=== PATIENT | female | born 2000 | race Caucasian/White ===

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

== ENCOUNTER 2018-01-02 12:02 | Emergency (ER) | payer MEDICAID ==
[2018-01-02 12:03] VITALS: BMI 26.2
[2018-01-02 12:36] VITALS: BP 117/73; PULSE 73; RESP 18; TEMP 98.6; O2SAT 99
[2018-01-02] MEDS: Sodium Chloride 0.9% 1,000 ML IV STA (13:41)
--- NOTE | 2018-01-02 14:08 | ED PDOC ---
HPI: Abdomen Time Seen by Provider: 01/02/18 12:46 Chief Complaint (Nursing): Abdominal Pain Chief Complaint (Provider): Abdominal Pain History Per: Patient History/Exam Limitations: no limitations Onset/Duration Of Symptoms: Days (3) Location Of Pain/Discomfort: RLQ, LLQ Associated Symptoms: Nausea, Vomiting, Diarrhea Additional Complaint(s): 17 years old female presents to the ED for evaluation of crampy lower abdominal pain associated with nausea and vomiting onset 3 days. Patient is currently menstruating and describes pain as menstrual-like pain. She reports experiencing multiple episodes of diarrhea last night. Patient reports traveling to [facility] and returned on 12/23. She denies any abdominal surgeries, recent antibiotics use, sick contact, fever and urinary symptoms. Otherwise: (- ) melena, (-) hematochezia. PMD: [place] Past Medical History Reviewed: Historical Data, Nursing Documentation, Vital Signs Vital Signs: Last Vital Signs Temp 98.6 F 01/02/18 12:32 Pulse 73 01/02/18 12:32 Resp 18 01/02/18 12:32 BP 117/73 01/02/18 12:32 Pulse Ox 99 01/02/18 14:12 - Medical History PMH: Anxiety, Bipolar Disorder Denies: Diabetes, Hepatitis, HIV, HTN, Seizures, Sexually Transmitted Disease - Surgical History Surgical History: No Surg Hx - Family History Family History: States: Unknown Family Hx - Social History Current smoker - smoking cessation education provided: No Alcohol: None Drugs: Denies - Home Medications Home Medications: Ambulatory Orders Medication Instructions Recorded ARIPiprazole [Abilify] 15 mg PO DAILY 07/05/16 Amoxicillin/Clavulanate [Augmentin 1 tab PO BID #14 tab 08/19/16 875 MG-125 MG] Ibuprofen [Motrin] 600 mg PO Q6 #20 tab 08/19/16 Methylprednisolone [Medrol Dose 4 mg PO DAILY #21 mg 08/19/16 Pack (21 tabs)] Cyclobenzaprine [Cyclobenzaprine 10 mg PO Q8 PRN #10 tab 12/25/17 HCl] Naproxen [Naprosyn] 500 mg PO BID PRN #14 tab 12/25/17 Dicyclomine [Bentyl] 20 mg PO QID PRN #20 tab 01/02/18 Ondansetron ODT [Zofran ODT] 4 mg PO DAILY PRN #20 odt 01/02/18 - Allergies Allergies/Adverse Reactions: Allergies Allergy/AdvReac Type Severity Reaction Status Date / Time No Known Allergies Allergy Verified 12/25/17 12:00 Review of Systems ROS Statement: Except As Marked, All Systems Reviewed And Found Negative Constitutional: Negative for: Fever Gastrointestinal: Positive for: Nausea, Vomiting, Abdominal Pain (Lower), Diarrhea Physical Exam - Physical Exam Comments: GENERAL APPEARANCE: Patient is awake, alert, oriented x 3, in mild painful distress. SKIN: Warm, dry; (-) cyanosis. EYES: (-) conjunctival pallor, (-) scleral icterus. ENMT: Mucous membranes moist. NECK: (-) tenderness, (-) stiffness, (-) lymphadenopathy. CHEST AND RESPIRATORY: (-) rales, (-) rhonchi, (-) wheezes; breath sounds equal bilaterally. HEART AND CARDIOVASCULAR: (-) irregularity; (-) murmur, (-) gallop. ABDOMEN AND GI: (-) distention. Bowel sounds active; (-) tenderness. (-) guarding, (-) rebound, (-) palpable masses, (-) CVA tenderness. EXTREMITIES: (-) deformity, (-) edema, (+) distal pulses. NEURO AND PSYCH: Mental status as above; (-) focal findings. - Laboratory Results Result Diagrams: 01/02/18 14:00 01/02/18 14:00 - ECG O2 Sat by Pulse Oximetry: 99 (RA) Pulse Ox Interpretation: Normal Medical Decision Making Medical Decision Making: Time: 1313 Initial Impression: Initial Plan: --CMP --Lipase --Urine dipstick --CBC --Toradol 30 mg IVP --NaCl 1,000ml IV --Zofran 4 mg IVP Labs reviewed : within normal limits, urine hCG negative you dipped positive for blood otherwise negative for infection. On reevaluation, patient is laying in bed comfortably in no acute distress. Patient reports improvement of symptoms, denies any nausea, abdominal pain or any episodes of diarrhea while in the ER. Repeat exam, abdomen soft with no tenderness, no guarding, no rebound. Lab results discussed the patient in great detail. Advised to follow up with primary care physician in 1-2 days without fail. Advised to take medication as prescribed. Return to the emergency room at any time for any new or worsening symptoms. Patient states she fully agrees with and understands discharge instructions. States that she agrees with the plan and disposition. Verbalized and repeated discharge instructions and plan. I have given the patient opportunity to ask any additional questions. ----- Scribe Attestation: Documented by Tammy Palomares, acting as a scribe for Le Apodaca PA-C. Provider Scribe Attestation: All medical record entries made by the Scribe were at my direction and personally dictated by me. I have reviewed the chart and agree that the record accurately reflects my personal performance of the history, physical exam, medical decision making, and the department course for this patient. I have also personally directed, reviewed, and agree with the discharge instructions and disposition. Disposition - Clinical Impression Clinical Impression: Gastroenteritis - Patient ED Disposition Is Patient to be Admitted: No Counseled Patient/Family Regarding: Studies Performed, Diagnosis, Need For Followup, Rx Given - Disposition Disposition: Routine/Home Disposition Time: 15:00 Condition: STABLE Additional Instructions: Thank you for letting us take care of you today. You were treated for gastroenteritis. The emergency medical care you received today was directed at your acute symptoms. If you were prescribed any medication, please fill it and take as directed. It may take several days for your symptoms to resolve. Return to the Emergency Department if your symptoms worsen, do not improve, or if you have any other problems. Please contact your doctor in 2 days for re-evaluation and follow up. Bring any paperwork you were given at discharge with you along with any medications you are taking to your follow up visit. Our treatment cannot replace ongoing medical care by a primary care provider (PCP) outside of the emergency department. Thank you for allowing the [facility] team to be part of your care today. Prescriptions: Dicyclomine [Bentyl] 20 mg PO QID PRN #20 tab PRN Reason: Other Ondansetron ODT [Zofran ODT] 4 mg PO DAILY PRN #20 odt PRN Reason: Nausea/Vomiting Instructions: Gastroenteritis (ED) Forms: [facility] (Tajik), [facility] ED School/Work Excuse
[2018-01-02 14:23] LABS: BASO # 0.1 K/uL (0.0-0.2); BASO % 0.6 % (0.0-2.0); EOS % 0.2 % (0.0-4.0); HEMOGLOBIN 14.6 g/dL (12.0-16.0); LYMPH # 1.8 K/uL (1.0-4.3); LYMPH % 17.6 % (20.0-40.0); MEAN CORPUSCULAR HEMOGLOBIN 29.8 pg (27.0-31.0); MEAN CORPUSCULAR HGB CONC 34.2 g/dL (33.0-37.0); MEAN PLATELET VOLUME 8.9 fl (7.2-11.7); MONO # 0.4 K/uL (0.0-0.8); MONO % 3.6 % (0.0-10.0); NEUT # 7.7 K/uL (1.8-7.0); NRBC % 0.1 % (0.0-0.0); RBC 4.91 Mil/uL (3.80-5.20); RED CELL DISTRIBUTION WIDTH 13.5 % (11.5-14.5); WHITE BLOOD COUNT 9.9 K/uL (4.8-10.8)
[2018-01-02 14:33] LABS: ALB/GLOB RATIO 1.3 (1.0-2.1); ALBUMIN 4.7 g/dL (3.5-5.0); ALT/SGPT 53 U/L (9-52); AST/SGOT 29 U/L (14-36); BLOOD UREA NITROGEN 9 mg/dl (7-17); CALCIUM 9.7 mg/dL (8.4-10.2); GFR AFRICAN-AMERICAN > 60; GFR NON-AFRICAN AMERICAN > 60; LIPASE 54 U/L (23-300)
== END 2018-01-02 16:01 | disposition home or self-care (01) ==
LOC: H.ER 12:02
DX: K52.9 Noninfective gastroenteritis and colitis, unspecified (principal); F31.9 Bipolar disorder, unspecified; F41.9 Anxiety disorder, unspecified
CPT/HCPCS: 80053; 81025; 83690; 85025; 96374; 96375; 99284; J1885; J2405; J7030

== ENCOUNTER 2018-04-06 08:04 | Emergency (ER) | payer MEDICAID ==
[2018-04-06 08:20] VITALS: BMI 25.7
[2018-04-06] MEDS ORDERED: Sodium Chloride 0.9% 1,000 ML IV STA (08:35)
--- NOTE | 2018-04-06 08:37 | ED PDOC ---
HPI: Abdomen Time Seen by Provider: 04/06/18 08:31 Chief Complaint (Nursing): GI Problem History Per: Patient Onset/Duration Of Symptoms: Days (2) Current Symptoms Are (Timing): Intermittent Episodes Severity: Mild Location Of Pain/Discomfort: Diffuse Quality Of Discomfort: Unable To Describe Associated Symptoms: Nausea, Vomiting. denies: Fever, Diarrhea Exacerbating Factors: None Alleviating Factors: None Additional Complaint(s): Nausea and vomiting since yesterday assoc with abdominal discomfort. 1 episode diarrhea. Denies fever. Denies blood in stool. Past Medical History Vital Signs: Last Vital Signs Temp 99.1 F 04/06/18 08:19 Pulse 61 04/06/18 08:19 Resp 18 04/06/18 08:19 BP 127/86 04/06/18 08:19 Pulse Ox 98 04/06/18 08:19 - Medical History PMH: Anxiety, Bipolar Disorder Denies: Diabetes, Hepatitis, HIV, HTN, Seizures, Sexually Transmitted Disease - Family History Family History: States: Unknown Family Hx - Home Medications Home Medications: Ambulatory Orders Medication Instructions Recorded ARIPiprazole [Abilify] 15 mg PO DAILY 07/05/16 Amoxicillin/Clavulanate [Augmentin 1 tab PO BID #14 tab 08/19/16 875 MG-125 MG] Ibuprofen [Motrin] 600 mg PO Q6 #20 tab 08/19/16 Methylprednisolone [Medrol Dose 4 mg PO DAILY #21 mg 08/19/16 Pack (21 tabs)] Cyclobenzaprine [Cyclobenzaprine 10 mg PO Q8 PRN #10 tab 12/25/17 HCl] Naproxen [Naprosyn] 500 mg PO BID PRN #14 tab 12/25/17 Dicyclomine [Bentyl] 20 mg PO QID PRN #20 tab 01/02/18 Ondansetron ODT [Zofran ODT] 4 mg PO DAILY PRN #20 odt 01/02/18 Ondansetron [Zofran] 4 mg PO Q8H #10 tab 04/06/18 - Allergies Allergies/Adverse Reactions: Allergies Allergy/AdvReac Type Severity Reaction Status Date / Time No Known Allergies Allergy Verified 12/25/17 12:00 Review of Systems ROS Statement: Except As Marked, All Systems Reviewed And Found Negative Constitutional: Negative for: Fever Gastrointestinal: Positive for: Nausea, Vomiting, Abdominal Pain Physical Exam - Reviewed Nursing Documentation Reviewed: Yes Vital Signs Reviewed: Yes - Physical Exam Appears: Positive for: Non-toxic, No Acute Distress Head Exam: Positive for: ATRAUMATIC, NORMAL INSPECTION, NORMOCEPHALIC Skin: Positive for: Normal Color, Warm, DRY Eye Exam: Positive for: EOMI, Normal appearance, PERRL ENT: Positive for: Normal ENT Inspection Neck: Positive for: Normal, Painless ROM Cardiovascular/Chest: Positive for: Regular Rate, Rhythm Respiratory: Positive for: CNT, Normal Breath Sounds Gastrointestinal/Abdominal: Positive for: Normal Exam, Soft. Negative for: Tenderness Back: Positive for: Normal Inspection Extremity: Positive for: Normal ROM Neurologic/Psych: Positive for: Alert, Oriented - Laboratory Results Result Diagrams: 04/06/18 08:40 04/06/18 08:40 - ECG O2 Sat by Pulse Oximetry: 98 Disposition - Clinical Impression Clinical Impression: Gastroenteritis - Patient ED Disposition Is Patient to be Admitted: No Counseled Patient/Family Regarding: Studies Performed, Diagnosis, Need For Followup, Rx Given - Disposition Referrals: [facility] [Outside] Disposition: Routine/Home Disposition Time: 09:10 Condition: FAIR Prescriptions: Ondansetron [Zofran] 4 mg PO Q8H #10 tab Instructions: Viral Gastroenteritis Forms: [facility] (Moroccan)
[2018-04-06 08:58] LABS: BASO # 0.1 K/uL (0.0-0.2); BASO % 0.6 % (0.0-2.0); EOS # 0.1 K/uL (0.0-0.7); EOS % 0.7 % (0.0-4.0); HEMOGLOBIN 14.3 g/dL (12.0-16.0); LYMPH # 1.5 K/uL (1.0-4.3); LYMPH % 16.3 % (20.0-40.0); MEAN CORPUSCULAR HEMOGLOBIN 29.4 pg (27.0-31.0); MEAN CORPUSCULAR HGB CONC 33.8 g/dL (33.0-37.0); MEAN PLATELET VOLUME 8.9 fl (7.2-11.7); MONO # 0.5 K/uL (0.0-0.8); MONO % 5.7 % (0.0-10.0); NEUT # 7.1 K/uL (1.8-7.0); NEUT % 76.7 % (50.0-75.0); RBC 4.88 Mil/uL (3.80-5.20); WHITE BLOOD COUNT 9.3 K/uL (4.8-10.8)
[2018-04-06 09:06] LABS: ALB/GLOB RATIO 1.3 (1.0-2.1); ALBUMIN 4.6 g/dL (3.5-5.0); ALT/SGPT 42 U/L (9-52); AST/SGOT 20 U/L (14-36); BLOOD UREA NITROGEN 7 mg/dl (7-17); GFR NON-AFRICAN AMERICAN > 60
[2018-04-06 11:05] VITALS: BP 127/76; PULSE 68; RESP 16; TEMP 98.9; O2SAT 100
== END 2018-04-06 11:00 | disposition home or self-care (01) ==
LOC: H.ER 08:04
DX: K52.9 Noninfective gastroenteritis and colitis, unspecified (principal); F31.9 Bipolar disorder, unspecified; F41.9 Anxiety disorder, unspecified
CPT/HCPCS: 80053; 81025; 85025; 96374; 96375; 96376; 99284; J2405; J7030

== ENCOUNTER 2018-05-21 07:45 | Emergency (ER) | payer MEDICAID ==
[2018-05-21 07:45] VITALS: BMI 25.7
[2018-05-21 07:50] VITALS: RESP 18; TEMP 98.6
--- NOTE | 2018-05-21 08:14 | ED PDOC ---
HPI: Dental Pain/Injury Time Seen by Provider: 05/21/18 07:55 History Per: Patient Onset/Duration Of Symptoms: Days (2) Current Symptoms Are (Timing): Still Present Severity: Mild Quality: Aching Additional Complaint(s): Bit into left lower molar area, bit into gum 2 days ago with left lower mandibular pain. No fever. Past Medical History Vital Signs: Last Vital Signs Temp 98.6 F 05/21/18 07:49 Pulse 64 05/21/18 07:49 Resp 18 05/21/18 07:49 BP 117/70 05/21/18 07:49 Pulse Ox 100 05/21/18 07:49 - Medical History PMH: Anxiety, Bipolar Disorder Denies: Diabetes, Hepatitis, HIV, HTN, Seizures, Sexually Transmitted Disease - Family History Family History: States: Unknown Family Hx - Home Medications Home Medications: Ambulatory Orders Medication Instructions Recorded ARIPiprazole [Abilify] 15 mg PO DAILY 07/05/16 Amoxicillin/Clavulanate [Augmentin 1 tab PO BID #14 tab 08/19/16 875 MG-125 MG] Ibuprofen [Motrin] 600 mg PO Q6 #20 tab 08/19/16 Methylprednisolone [Medrol Dose 4 mg PO DAILY #21 mg 08/19/16 Pack (21 tabs)] Cyclobenzaprine [Cyclobenzaprine 10 mg PO Q8 PRN #10 tab 12/25/17 HCl] Naproxen [Naprosyn] 500 mg PO BID PRN #14 tab 12/25/17 Dicyclomine [Bentyl] 20 mg PO QID PRN #20 tab 01/02/18 Ondansetron ODT [Zofran ODT] 4 mg PO DAILY PRN #20 odt 01/02/18 Ondansetron [Zofran] 4 mg PO Q8H #10 tab 04/06/18 Clindamycin [Cleocin] 300 mg PO TID #21 cap 05/21/18 traMADol [Ultram] 50 mg PO Q8 #10 tab 05/21/18 - Allergies Allergies/Adverse Reactions: Allergies Allergy/AdvReac Type Severity Reaction Status Date / Time No Known Allergies Allergy Verified 12/25/17 12:00 Review of Systems Constitutional: Negative for: Fever ENT: Positive for: Mouth Pain Physical Exam - Physical Exam Appears: Positive for: Non-toxic Skin: Positive for: Normal Color, Warm, DRY ENT: Positive for: Other (Left lower molar area. No swelling or abscess noted. Molar with fillings. No carries noted. No mandibular swelling or tenderness) Neck: Positive for: Normal, Painless ROM - ECG O2 Sat by Pulse Oximetry: 100 Disposition - Clinical Impression Clinical Impression: Pain, dental - Patient ED Disposition Is Patient to be Admitted: No Counseled Patient/Family Regarding: Diagnosis, Need For Followup, Rx Given - Disposition Disposition: Routine/Home Disposition Time: 08:15 Condition: FAIR Prescriptions: Clindamycin [Cleocin] 300 mg PO TID #21 cap traMADol [Ultram] 50 mg PO Q8 #10 tab Instructions: Dental Pain
[2018-05-21 08:41] VITALS: BP 114/76; PULSE 66; O2SAT 99
== END 2018-05-21 08:41 | disposition home or self-care (01) ==
LOC: H.ER 07:45
DX: K08.89 Other specified disorders of teeth and supporting structures (principal)